=== PATIENT | male | born 1960 | race Caucasian/White ===

== ENCOUNTER 2017-01-20 18:46 | Emergency (ER) | payer MEDICARE, MEDICAID ==
[2017-01-20 19:19] LABS: BASOPHILS 0.3 % (0-2); EOSINOPHILS 0.9 % (0-7); HEMATOCRIT 46.5 % (42.0-54.0); HEMOGLOBIN 16.3 g/dL (13.5-17.5); IMMATURE GRANULOCYTES 0.1 % (0-5); LYMPHOCYTES 28.8 % (15-50); MCH 31.2 pg (26.0-34.0); MCHC 35.1 g/dL (31.0-37.0); MCV 88.9 fL (80.0-100.0); MEAN PLATELET VOLUME 9.7 fL (7.4-10.4); MONOCYTES 7.8 % (2-11); NEUTROPHILS 62.1 % (40-80); PLATELET COUNT 183 10x3/uL (130-400); RBC 5.23 10x6/uL (4.20-6.10); RDW 12.5 % (11.5-14.5); WBC 7.5 10x3/uL (4.8-10.8)
[2017-01-20 20:06] LABS: ALBUMIN 3.4 g/dL (3.4-5.0); ALKALINE PHOSPHATASE 131 U/L (46-116); ALT (SGPT) 46 U/L (10-68); CALC OSMOLALITY 278 mosm/kg (275-300); CALCIUM 8.6 mg/dL (8.5-10.1); CARBON DIOXIDE 24.7 mmol/L (21.0-32.0); CHLORIDE - SERUM 105 mmol/L (98-107); GLUCOSE 119 mg/dL (74-106); POTASSIUM - SERUM 3.7 mmol/L (3.5-5.1); PROTEIN - SERUM 6.4 g/dL (6.4-8.2); SODIUM 140 mmol/L (136-145); UREA NITROGEN 10 mg/dL (7-18); eGFR NON AFRICAN AMERICAN 82 mL/min (90-120)
== END 2017-01-20 21:50 | disposition home or self-care (01) ==
LOC: D.ER 18:46
PROVIDERS: Emergency Medicine
DX: R06.02 Shortness of breath (principal); H81.10 Benign paroxysmal vertigo, unspecified ear; J44.9 Chronic obstructive pulmonary disease, unspecified; Z86.79 Personal history of other diseases of the circulatory system; E11.9 Type 2 diabetes mellitus without complications; I10 Essential (primary) hypertension; F17.200 Nicotine dependence, unspecified, uncomplicated

== ENCOUNTER 2017-10-26 20:10 | Emergency (ER) | payer MEDICARE, MEDICAID ==
[~2017-10-26] VITALS: Ht 182.9 cm; Wt 131.8 kg
[2017-10-26 20:25] VITALS: Ht 182.9 cm; Wt 131.8 kg
[2017-10-26] MEDS ORDERED: LISINOPRIL5 MG PO (20:27)
[2017-10-26] MEDS ORDERED: LIPITOR40 MG PO (20:28)
[2017-10-26] MEDS ORDERED: PLAVIX75 MG PO (20:28)
[2017-10-26] MEDS ORDERED: ZEBETA5 MG PO (20:28)
[2017-10-26] MEDS ORDERED: CHILDREN'S ASPI81 MG PO (20:28)
[2017-10-26] MEDS ORDERED: K-TAB10 MEQ PO (20:29)
[2017-10-26] MEDS ORDERED: ISOSORBIDE MONO60 M1 PO (20:29)
[2017-10-26 22:35] VITALS: BP 121/78
== END 2017-10-26 23:35 | disposition home or self-care (01) ==
LOC: D.ER 20:10
DX: S81.812A Laceration without foreign body, left lower leg, initial encounter (principal); W25.XXXA Contact with sharp glass, initial encounter; Y93.89 Activity, other specified; Y92.019 Unspecified place in single-family (private) house as the place of occurrence of the external cause; I25.10 Atherosclerotic heart disease of native coronary artery without angina pectoris